=== PATIENT | male | born 1945 | race Caucasian/White ===

== ENCOUNTER → 2019-09-15 11:49 | Outpatient (CLI) | payer MEDICARE, SELFPAY ==
[2013-11-02 06:41] VITALS: BMI 26.4
[2019-09-15 15:37] LABS: Absolute Lymphocyte Count 1.29 X10^3/uL (0.83-4.51); Absolute Neutrophil Count 4.2 X10^3/uL (2.0-7.7); Basophil# 0.02 X10^3/uL; Basophil% 0.3 % (0-1); Eosinophil# 0.04 X10^3/uL; Eosinophils% 0.7 % (0-5); Hematocrit 43.2 % (40-54); Hemoglobin 14.2 g/dL (13.0-16.5); Lymphocyte # 1.29 X10^3/ul (4.0); Lymphocyte % 21.6 % (19-41); Mean Corp Hgb Conc 32.9 g/dL (32-36); Mean Corpuscular Hgb 29.8 pg (27.0-32.0); Mean Corpuscular Volume 90.8 fL (80-94); Mean Platelet Vol. 10.5 fl (6.2-12.0); Monocyte# 0.38 X10^3/uL; Monocyte% 6.4 % (0-10); NRBC Flagged by Analyzer 0 % (0-5); Neutrophil # 4.22 X10^3/uL (2.7-7.7); Neutrophil % 70.7 % (47-70); Platelet Count 250 K/mm3 (150-450); RBC Distribution Width CV 12.5 % (11.6-14.6); RBC Distribution Width SD 41.2 fl (35.1-43.9); Red Blood Count 4.76 M/mm3 (4.6-6.2)
[2019-09-15 15:54] LABS: ALB/GLOB Ratio 1.3 RATIO (0.9-2.4); AST(SGOT) 17 U/L (15-37); Alanine Aminotransfer ALT/SGPT 19 U/L (16-61); Albumin, Serum 3.7 g/dL (3.2-5.0); Alkaline Phosphatase 47 U/L (45-117); Anion Gap 6 (5-15); BUN 21 mg/dL (7-18); BUN/Creat Ratio 18.1 RATIO (10-20); Calcium,Total 8.6 mg/dL (8.5-10.1); Chloride 109 mmol/L (98-107); Creatinine, Serum 1.16 mg/dL (0.70-1.30); EST Glomerular Filtration Rate 66 mL/min (>60); Est Glom Filt Rate - Afr Amer 80 mL/min (>60); Globulin 2.9 g/dL (2.2-4.2); Glucose 92 mg/dL (74-106); Potassium 4.3 mmol/L (3.5-5.1); Protein, Total 6.6 g/dL (6.4-8.2); Sodium Level 144 mmol/L (136-145); Thyroid Stim Hormone (TSH) 1.65 uIU/mL (0.358-3.74)
[2019-09-15 15:58] LABS: Microalbumin,Random Urine 9.3 mg/L (NO RANGE EST.); Microalbumin:Creatinine Ratio 3.9 mg/g CRE (<30 mg/g CRE)
[2020-06-29 10:57] LABS: Aldosterone, Serum 2.4 ng/dL (0.0-30.0); Renin, Plasma 0.572 ng/mL/hr (0.167-5.380)
== END ==
PROVIDERS: Visit Provider Family Medicine
DX: I10 Essential (primary) hypertension (principal); R09.89 Other specified symptoms and signs involving the circulatory and respiratory systems
CPT/HCPCS: 36415; 80053; 82043; 82088; 82570; 84244; 84443; 85025

== ENCOUNTER 2020-06-15 14:17 | Outpatient (RCR) | payer MEDICARE, SELFPAY ==
[2013-11-02 06:41] VITALS: BMI 26.4
[2020-06-15] MEDS: COVID-19 VACC, MRNA(PFIZER)/PF 30 MCG/0.3 ML SYRINGE IM (08:16)
[2020-07-06] MEDS: COVID-19 VACC, MRNA(PFIZER)/PF 30 MCG/0.3 ML SYRINGE IM (08:04)
== END 2020-06-15 23:59 ==
LOC: IMMUN 14:17
PROVIDERS: PCP Family Medicine; Visit Provider Family Medicine
DX: Z23 Encounter for immunization (principal)
CPT/HCPCS: 0001A; 0002A

== ENCOUNTER → 2021-02-12 15:43 | Outpatient (CLI) | payer MEDICARE, SELFPAY ==
[2021-02-12 15:46] LABS: Bacteria 0 SEEN /hpf (None Seen); Lyme Ab Screen Interpretation REF LAB
[2021-02-12 17:38] LABS: Color, Urine Yellow (Yellow); Glucose, Dipstick 100 mg/dl (Normal); Ketone-Dipstick 15 mg/dl (Negative); Leukocyte Esterase-Dipstick 25 /ul (Negative); Nitrite-Dipstick Negative (Negative); Occult Blood-Urine 250 /ul (Negative); Protein-Dipstick 30 mg/dl (Negative); Specific Gravity, Urine 1.025 (1.002-1.030); Urine Bilirubin Dipstick Negative (Negative); Urine Clarity Clear (Clear); Urine Urobilinogen Normal (Normal)
[2021-02-12 17:43] LABS: Absolute Lymphocyte Count 1.69 X10^3/uL (0.83-4.51); Absolute Neutrophil Count 8.4 X10^3/uL (2.0-7.7); Basophil# 0.03 X10^3/uL; Basophil% 0.3 % (0-1); Hematocrit 44.7 % (40-54); Hemoglobin 15.2 g/dL (13.0-16.5); Lymphocyte # 1.69 X10^3/ul (0.83-4.51); Lymphocyte % 15.7 % (19-41); Mean Corpuscular Hgb 30.3 pg (27.0-32.0); Mean Platelet Vol. 10.3 fl (6.2-12.0); Monocyte# 0.65 X10^3/uL; NRBC Flagged by Analyzer 0 % (0-5); Neutrophil # 8.36 X10^3/uL (2.7-7.7); Neutrophil % 77.6 % (47-70); Platelet Count 237 K/mm3 (150-450); RBC Distribution Width CV 11.9 % (11.6-14.6); RBC Distribution Width SD 38.5 fl (35.1-43.9); Red Blood Count 5.02 M/mm3 (4.6-6.2); White Blood Count 10.8 K/mm3 (4.4-11.0)
[2021-02-12 17:46] LABS: Mucous, Urine 1+ /hpf (<or=2+); Red Blood Cells-Urine 10-25 SEEN /hpf (0-5); Squamous Epithelial Cells - UA 0-5 SEEN /hpf (0-5); White Blood Cells 0-5 SEEN /hpf (0-5)
[2021-02-12 17:57] LABS: Vitamin B12 252 pg/mL (211-911)
[2021-02-12 18:01] LABS: Erythrocyte Sedimentation Rate 2 mm/hr (0-20)
[2021-02-12 18:26] LABS: ALB/GLOB Ratio 1.2 RATIO (0.9-2.4); AST(SGOT) 14 U/L (15-37); Alanine Aminotransfer ALT/SGPT 22 U/L (16-61); Alkaline Phosphatase 53 U/L (45-117); Anion Gap 8 (5-15); BUN 17 mg/dL (7-18); BUN/Creat Ratio 16.8 RATIO (10-20); CRP < 2.90 mg/L (0.0-3.0); Chloride 100 mmol/L (98-107); Creatinine, Serum 1.01 mg/dL (0.70-1.30); EST Glomerular Filtration Rate 77 mL/min (>60); Est Glom Filt Rate - Afr Amer 93 mL/min (>60); Globulin 3.4 g/dL (2.2-4.2); Glucose 117 mg/dL (74-106); Protein, Total 7.4 g/dL (6.4-8.2); Sodium Level 134 mmol/L (136-145)
[2021-02-15 16:32] LABS: Lyme Scn Total Ab w/Rflx <0.91 ISR (0.00-0.90)
== END ==
PROVIDERS: PCP Family Medicine; Visit Provider Family Medicine
DX: R53.83 Other fatigue (principal); R50.9 Fever, unspecified; W57.XXXA Bitten or stung by nonvenomous insect and other nonvenomous arthropods, initial encounter
CPT/HCPCS: 80053; 81001; 82607; 82746; 85025; 85652; 86140; 86618

== ENCOUNTER → 2024-12-01 | Outpatient (CLI) | payer MEDICARE, SELFPAY ==
--- NOTE | 2024-12-01 11:32 | VDLE_ITS ---
Reason For Study Reason For Study: LLE Pain RIGHT LEFT FV is compressible, spontaneous, phasic, competent Lt GSV is dilated and PARTIALLY COMPRESSIBLE with and demonstrates normal augmentation. bright intraluminal web-like echoes throughout. This Procedure finding is consistent with CHRONIC SVT. This is a venous duplex using B-mode, color flow and Multiple dilated but compressible varicosities noted spectral Doppler. throughout Lt calf. Exam performed in department. CFV is compressible, phasic, and INCOMPETENT for The exam was diagnostic. greater than 1.0 second. A preliminary report was called and/or faxed to FV is compressible, phasic, and INCOMPETENT for [facility] / Hunter Julian MD. greater than 1.0 second. POP V is compressible, phasic, and INCOMPETENT for greater than 1.0 second. Pop V measures approximately 2.67cm x 3.26cm in transverse and 2.75cm in saggital axis. T/P Trunk is compressible. PTV is compressible. LT PerV is compressible. VL/Venous Duplex US, Unilateral Interpretation Summary Deep veins of the left lower extremity are patent and compressible segmentally. There is no evidence of left lower extremity deep vein thrombosis. The left common femoral vein, femoral vein, and popliteal vein are incompetent. 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 Chronic joby ous changes are noted in the left great saphenous vein, which is partially compressible with bright intra-luminal echog enicity. Multiple large varicosities are noted in the left calf. The right femoral vein is patent and compressible. Ordering Physician: Hunter Julian Referring Physician: Hunter Julian Performed By: Francisco Hale RVT
== END | disposition home or self-care (01) ==
PROVIDERS: PCP Family Medicine; Referring Provider Family Medicine; Visit Provider Family Medicine
DX: M79.662 Pain in left lower leg (principal)
CPT/HCPCS: 93971

== ENCOUNTER → 2024-12-07 | Outpatient (CLI) | payer MEDICARE, OTHER, SELFPAY ==
[2024-12-07 18:01] LABS: Hematocrit 38.6 % (40-54); Hemoglobin 13.5 g/dL (13.0-16.5); Immature Granulocytes Count 0.020 X10^3/uL (0.0-0.0); Mean Corp Hgb Conc 35.0 g/dL (32-36); Mean Corpuscular Volume 90.6 fL (80-94); Mean Platelet Vol. 10.2 fl (6.2-12.0); NRBC Flagged by Analyzer 0 % (0-5); Platelet Count 239 K/mm3 (150-450); RBC Distribution Width CV 12.2 % (11.6-14.6); RBC Distribution Width SD 40.1 fl (35.1-43.9); Red Blood Count 4.26 M/mm3 (4.6-6.2); White Blood Count 6.3 K/mm3 (4.4-11.0)
[2024-12-07 18:28] LABS: AST(SGOT) 21 U/L (<=37); Alanine Aminotransfer ALT/SGPT 17 U/L (<=46); Albumin, Serum 4.1 g/dL (3.4-4.8); Alkaline Phosphatase 67 U/L (40-129); Anion Gap 9 (5-15); BUN 19 mg/dL (4-19); BUN/Creat Ratio 18.7 RATIO (10-20); Calcium,Total 9.0 mg/dL (7.6-11.0); Carbon Dioxide 24.4 mmol/L (21.0-32.0); Chloride 107 mmol/L (98-108); Globulin 2.4 g/dL (2.2-4.2); Glucose 91 mg/dL (70-99); Potassium 4.5 mmol/L (3.3-5.1); Syphilis Antibodies Nonreactive (Nonreactive)
--- OUTSIDE RECORDS SUMMARY | 2024-12-07 22:07 | XMS RPT_ITS | CCD ---
Author Organization [facility] Care Team Providers Care Record Systems Analyst Name Role Phone Hunter Julian Referring Unavailable Hunter Julian Attending Unavailable Hunter Julian Primary Care Unavailable Eliel MIR, Dr. Harrison Primary Care Provider Eliel MIR, Dr. Harrison Attending Provider Eliel MIR, Dr. Harrison Referring Provider [phone] Medications Current Medications Medication Drug Class(es) Dates Sig (Normalized) Sig (Original) acetaminophen 325 mg / oxyCODONE hydrochloride 5 mg oral tablet (1 source) Opioid Agonist Start: 11-02-2013 Oxycodone-Acetam inophen 1 TABLET tablet Active 1 - 2 {tbl} PO EVERY 4 HOURS NEEDED as needed for Pain November 02, 2013 12:00am aspirin 81 mg chewable tablet (1 source) Platelet Aggregation Inhibitor, Nonsteroidal Anti-inflammatory Drug Start: 05-10-2013 take 1 tablet by mouth once daily Aspirin 81 MG tablet,chewable Active 81 mg PO DAILY May 10, 2013 1:00am warfarin sodium 5 mg oral tablet (1 source) Vitamin K Antagonist Start: 11-02-2013 take 1 tablet by mouth once daily Warfarin (Coumadin) 5 MG tablet Active 5 mg PO DAILY November 02, 2013 12:00am Problems Problem Classification Problem Date Documented Da te Episodic/Chronic Other connective tissue disease (1 source) Pain in left lower leg; Translations: [Pain in left lower leg] Onset: 12-01-2024 Episodic Results Test Name Value Interpretation Reference Range Facil ity Venous duplex ultrasound rep ortOrdered By: Salvatore Sal on 12-02-2024 US Vein [facility] [address] [place] [address] Venous Duplex US, Unilateral 12/01/24 1142 MR#: [id number] Acct: [id number] Name: EVE FERRERA Rep #:[id number] : 1945 79 From: Salvatore Sal MD Attending Dr: Dr. Hunter Julian MD atus: REG CLI Ordering Dr: Hunter Julian MD Date: 11/13 Location: CVS Sex: M C Admitted: Reason For Study Reason For Study: LLE Pain RIGHT LEFT FV is compressible, spontaneous, phasic, competent Lt GSV is dilated and PARTIALLY COMPRESSIBLE with and demonstrates normal augmentation. bright intraluminal web-like echoes throughout. This Procedure finding is consistent with CHRONIC SVT. This is a venous duplex using B-mode, color flow and Multiple dilated but compressible varicosities noted spectral Doppler. throughout Lt calf. Exam performed in department. CFV is compressible, phasic, and INCOMPETENT for The exam was diagnostic. greater than 1.0 second. A preliminary report was called and/or faxed to FV is compressible, phasic, and INCOMPETENT for [facility] / Hunter Julian MD. greater than 1.0 second. POP V is compressible, phasic, and INCOMPETENT for greater than 1.0 second. Pop V measures approximately 2.67cm x 3.26cm in transverse and 2.75cm in saggital axis. T/P Trunk is compressible. PTV is compressible. LT PerV is compressible. VL/Venous Duplex US, Unilateral Interpretation Summary Deep veins of the left lower extremity are patent and compressible segmentally. There is no evidence of left lower extremity deep vein thrombosis. The left common femoral vein, femoral vein, and popliteal vein are incompetent. 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 Chronic venous changes are noted in the left great saphenous vein, which is partially compressible with bright intra-luminal echogenicity. Multiple large varicosities are noted in the left calf. The right femoral vein is patent and compressible. Ordering Physician: Hunter Julian Referring Physician: Hunter Julian Performed By: Francisco Hale, RVT 12/02/2416 Date _ Salvatore Sal MD CC: Dr. Hunter Julian MD ~ Date Dictated: 12/01/24 1142 Date Transcribed: 12/02/2416 Hydroblaster: Signed [facility] Other Venous Duplex US, Unilateral on 12-01-2024 Venous Duplex US, Unilateral [facility] [address] [place] [address] Venous Duplex US, Unilateral 12/01/241141 MR#: [id number] Acct: [id number] Name: EVE FERRERA Rep #: [id number] : 1945 79 From: Salvatore Sal MD Attending Dr: Dr. Hunter Julian MD Status: REG CL I Ordering Dr: Hunter Julian MD Date: 12/01/24 Location: [facility]S Sex: M C Admitted: Reason For Study Reason For Study: LLE Pain RIGHT LEFT FV is compressible, spontaneous, phasic, competent Lt GSV is dilated and PARTIALLY COMPRESSIBLE with and demonstrates normal augmentation. bright intraluminal web-like echoes throughout. This Procedure finding is consistent with CHRONIC SVT. This is a venous duplex using B-mode, color flow and Multiple dilated but compressible varicosities noted spectral Doppler. throughout Lt calf. Exam performed in department. CFV is compressible, phasic, and INCOMPETENT for The exam was diagnostic. greater than 1.0 second. A preliminary report was called and/or faxed to FV is compressible, phasic, and INCOMPETENT for [facility] / Hunter Julian MD. greater than 1.0 second. POP V is compressible, phasic, and INCOMPETENT for greater than 1.0 second. Pop V measures approximately 2.67cm x 3.26cm in transverse and 2.75cm in saggital axis. T/P Trunk is compressible. PTV is compressible. LT PerV is compressible. VL/Venous Duplex US, Unilateral Interpretation Summary Deep veins of the left lower extremity are patent and compressible segmentally. There is no evidence of left lower extremity deep vein thrombosis. The left common femoral vein, femoral vein, and popliteal vein are incompetent. 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 Chronic venous changes are noted in the left great saphenous vein, which is partially compressible with bright intra-luminal echogenicity. Multiple large varicosities are noted in the left calf. The right femoral vein is patent and compressible. Ordering Physician: Hunter Julian Referring Physician: Hunter Julian Performed By: Francisco Hale RVT 12/02/24 0017 Date Salvatore Sal MD CC: Dr. Hunter Julian MD Date Dictated: 12/01/24 1142 Date Transcribed: 12/02/2416 Hydroblaster: Signed Normal [facility]COon 05-20-2022 [facility]CO Letter Text Normal [facility] Encounters Encounter Date Encounter Type Care Provider Facility Start: 12-07-[address] Hunter Julian MD -Laboratory [facility] Start: 12-01-2024 End: 12-01-[address] Hunter Julian MD -Cardiovascular Services Work Phone: Start: 12-01-2024 End: 12-01-2024 ambulatory Hunter Julian Facility:[facility] Plan of Treatment Date Care Activity Detail Author Start: 12-07-2024 Serologic test for syphilis [facility] Alanine aminotransfe rase [Enzymatic activity/volume] in Serum or Plasma [facility] Albumin [Mass/volume ] in Serum or Plasma [facility] Albumin/Globulin [Ma ss Ratio] in Serum or Plasma by Electrophoresis [facility] Alkaline phosphatase [Enzymatic activity/volume] in Serum or Plasma [facility] Anion gap in Serum or Plasma [facility] Bilirubin, total measurement [facility] BUN/Creatinine ratio [facility] Calcium [Mass/volume ] in Serum or Plasma [facility] Carbon dioxide, tota l [Moles/volume] in Central venous blood [facility] Creatinine [Mass/vol ume] in Serum or Plasma [facility] Electrophoresis: albumin [facility] Electrophoresis: [id number] [facility] Electrophoresis: [id number] [facility] Electrophoresis: gamma globulin [facility] Erythrocyte mean cor puscular volume determination [facility] Globulin measurement [facility] Glucose [Mass/volume ] in Serum or Plasma [facility] Hematocrit [Volume F raction] of Blood [facility] Hemoglobin [Mass/volume] in Blood [facility] Hemoglobin A1c/Hemog lobin.total in Blood [facility] Leukocytes [#/volume] in Blood [facility] Mean corpuscular hem oglobin concentration determination [facility] Mean corpuscular hem oglobin determination [facility] Measurement of renal function [facility] Neutrophil count [facility] Neutrophil percent d ifferential count [facility] Platelets [#/volume] in Blood [facility] Potassium measurement [facility] Protein electrophore sis panel - Serum or Plasma [facility] Red blood cell count [facility] Red cell distributio n width determination [facility] Serum chloride measurement [facility] Serum protein electrophoresis [facility] Sodium measurement [facility] Thyroid stimulating hormone measurement [facility] Total globulins measurement [facility] Total protein measurement [facility] Urea nitrogen [Mass/ volume] in Serum or Plasma [facility] Immunizations Immunization Date Immunization Notes Care Provider Fa cility 07-06-2020 Covid ([employer]) Dr. Hunter ramos MD Work Phone: [facility] 06-15-2020 Covid ([employer]) Dr. Hunter ramos MD Work Phone: [facility] Payers Date Payer Category Payer Self-pay 2024 Unknown [id number] 2012 Medicare [id number] Self-pay [id number] Unknown [id number] Unknown [id number] Unknown [id number] Unknown [id number] Social History Date Type Detail Facility Start: 10-26-2013 Tobacco smoking stat us [place] Ex-smoker (finding) [facility] Start: 1945 Sex Assigned At Male [facility] Evaluation note Note Date & Type Note Facility Evaluation note No assessment information availa ble [facility] Work Phone: Reason for referral (narrative) Note Date & Type Note Facility Reason for referral (narrative) No reason for referral information available [facility] Work Phone: Summary Purpose Family History No Family History Records FoundNo Family History Records Found Advance Directives Advance Directive Response Recorded Date/ Time Advance Directives No October 26 10:21am Chief Complaint and Reason for Visit Chief Complaint Admit Date STAT LEFT LEG PAIN December 01, 2024 10 :41am Additional Source Comments (unrecognized sect ion and content) No Status Records FoundNo Status Records Found INFORMATION SOURCE (unrecogn ized section and content) DATE CREATED AUTHOR 05/20/2022 [facility] DATE CREATED AUTHOR AUTHOR'S ORGANIZ ATION 12/03/2024 [facility] Care Teams (unrecognized sec tion and content) Team Status: Active Member Role/Relationship Status Dates Dr. Hunter Julian MD Primary Care Provider Active Team Status: Inactive Member Role/Relationship Status Dates Dr. Hunter Julian MD Primary Care Provider Active Start: December 01, 2024 End: December 01, 2024 Dr. Hunter Julian MD Attending Provider Active St art: December 01, 2024 End: December 01, 2024 Dr. Hunter Julian MD Referring Provider Active St art: December 01, 2024 End: December 01, 2024 Team Status: Active Member Role/Relationship Status Dates Dr. Hunter Julian MD Primary Care Provider Active Start: December 07, 2024 Dr. Hunter Julian MD Attending Provider Active art: December 07, 2024 Dr. Hunter Julian MD Referring Provider Active art: December 07, 2024 Goals (unrecognized section and content) Goals may be documented in a n alternate section FOR RECORDS PERTAINING TO PATIENTS WHO ARE OR HAVE BEEN ENROLLED IN A CHEMICAL DEPENDENCY/SUBSTANCEABUSE PROGRAM, SOME INFORMATION MAY BE OMITTED. This clinical summary was aggregated from multiple sources. Caution should be exercised in using it in the provision of clinical care. This summary normalizes information from multiple sources, and as a consequence, information in this document may materially change the coding, format and clinical context of patient data. In addition, data may be omitted in some cases. CLINICAL DECISIONS SHOULD BE BASED ON THE PRIMARY CLINICAL RECORDS. [facility] [employer] [facility]. provides no warranty or guarantee of the accuracy or completeness of information in this document.
[2024-12-09 16:09] LABS: PROEL- A/G Ratio 1.5 (0.7-1.7); PROEL- Albumin 3.6 g/dL (2.9-4.4); PROEL- Alpha-1 Globulin 0.2 g/dL (0.0-0.4); PROEL- Alpha-2 Globulin 0.6 g/dL (0.4-1.0); PROEL- Beta Globulin 0.9 g/dL (0.7-1.3); PROEL- Gamma Globulin 0.7 g/dL (0.4-1.8); PROEL- Globulin, Total 2.4 g/dL (2.2-3.9); PROEL- TOTAL PROTEIN 6.0 g/dL (6.0-8.5); PROEL-M-Spike 0.3 g/dL (Not Observed)
== END | disposition home or self-care (01) ==
LOC: MFPLAB 14:59
PROVIDERS: PCP Family Medicine; Referring Provider Family Medicine; Visit Provider Family Medicine
DX: R20.2 Paresthesia of skin (principal)
CPT/HCPCS: 36415; 80053; 83036; 84165; 84443; 85025; 86780

== ENCOUNTER → 2024-12-23 | Outpatient (CLI) | payer MEDICARE, OTHER, SELFPAY ==
--- NOTE | 2024-12-23 07:28 | US_ITS ---
PROCEDURE: EXT NON VASC LIMITED/SOFT TISS 12/23/2024 REASON FOR EXAM: MORALES CYST TECHNIQUE: Procedure Code: [id number] Modality: US Procedure: EXT NON VASC LIMITED/SOFT TISS COMPARISON: None. US/Ext Non Vasc Limited/Soft Tiss IMPRESSION: No popliteal or Morales's cyst is seen at the left popliteal fossa. Extensive vascular varicosities are seen at the superior left popliteal fossa. Among these is particular focal dilation of a blood vessel (with internal flow seen on color doppler), measured at 4.8 x 3.3 x 3.2 cm. No free fluid is seen. No soft tissue mass is otherwise identified. Reading Location: [place] [address]
--- OUTSIDE RECORDS SUMMARY | 2024-12-23 07:34 | XMS RPT_ITS | CCD ---
Author Organization [facility] Care Team Providers Care Poultry Pathologist Name Role Phone Eliel MIR, Dr. Harrison Primary Care Provider Eliel MIR, Dr. Harrison Attending Provider Eliel MIR, Dr. Harrison Referring Provider [phone] Hunter Julian Primary Care Unavailable Hunter Julian Attending Unavailable Hunter Julian Referring Unavailable Hunter Julian Primary Care Unavailable Hunter Julian Attending Unavailable Hunter Julian Referring Unavailable Hunter Julian Attending Unavailable Hunter Julian Referring Unavailable Hunter Juilan Primary Care Unavailable Medications Current Medications Medication Drug Class(es) Dates Sig (Normalized) Sig (Original) acetaminophen 325 mg / oxyCODONE hydrochloride 5 mg oral tablet (2 sources) Opioid Agonist Start: 11-02-2013 Oxycodone-Acetam inophen 1 TABLET tablet Active 1 - 2 {tbl} PO EVERY 4 HOURS NEEDED as needed for Pain November 02, 2013 12:00am aspirin 81 mg chewable tablet (2 sources) Platelet Aggregation Inhibitor, Nonsteroidal Anti-inflammatory Drug Start: 05-10-2013 take 1 tablet by mouth once daily Aspirin 81 MG tablet,chewable Active 81 mg PO DAILY May 10, 2013 1:00am warfarin sodium 5 mg oral tablet (2 sources) Vitamin K Antagonist Start: 11-02-2013 take 1 tablet by mouth once daily Warfarin (Coumadin) 5 MG tablet Active 5 mg PO DAILY November 02, 2013 12:00am Problems Problem Classification Problem Date Documented Da te Episodic/Chronic Other connective tissue disease (1 source) Synovial cyst of popliteal space [Morales], left knee; Translations: [Synovial cyst of popliteal space [Morales], left knee] Onset: 12-15-2024 Episodic Other connective tissue disease (1 source) Pain in left lower leg; Translations: [Pain in left lower leg] Onset: 12-07-2024 Episodic Other nervous system disorders (1 source) Paresthesia of skin; Translations: [Paresthesia of skin] Onset: 12-14-2024 Episodic Results Test Name Value Interpretation Reference Range Facility Onur Dean 12-09 Albumin [Mass/Vol] 3.6 g/dL Normal 2.9-4.4 [facility] Comment on above: Order Comment: Order Date: 11/30/24 Order Info: 0060-1 - PROEL Performed By: #### L 501.9985, L3100.3450, L501.9520, L500.4050, L100.0100 #### [facility] [address] [place], [place], [id number] (518) Albumin/Globulin [Mass ratio] 1.5 {ratio} Normal 0.7-1.7 [facility] Comment on above: Order Comment: Order Date: 11/30/24 Order Info: 0060-1 - PROEL Performed By: #### L [id number], L3100.3450, L501.9520, L500.4050, L100.0100 #### [facility] [address] [place], [place], [id number] ([phone] ALPHA-1 GLOBUL 0.2 g/dL Normal 0.0-0.4 [facility] Comment on above: Order Comment: Order Date: 11/30/24 Order Info: 0060-1 - PROEL Performed By: #### L [id number], L3100.3450, L501.9520, L500.4050, L100.0100 #### [facility] [address] [place], [address] ALPHA-2 GLOBUL 0.6 g/dL Normal 0.4-1.0 [facility] Comment on above: Order Comment: Order Date: 11/30/24 Order Info: 0060-1 - PROEL Performed By: #### L [id number], L3100.3450, L501.9520, L500.4050, L100.0100 #### [facility] [address] [place], [address] BETA GLOBULIN 0.9 g/dL Normal 0.7-1.3 [facility] Comment on above: Order Comment: Order Date: 11/30/24 Order Info: 0060-1 - PROEL Performed By: #### L 501.9985, L3100.3450, L501.9520, L500.4050, L100.0100 #### [facility] [address] [place], [address] GAMMA GLOBULIN 0.7 g/dL Normal 0.4-1.8 [facility] Comment on above: Order Comment: Order Date: 11/30/24 Order Info: 0060-1 - PROEL Performed By: #### L 501.9985, L3100.3450, L501.9520, L500.4050, L100.0100 #### [facility] [address] [place], [address] Globulin (S) [Mass/Vol] 2.4 g/dL Normal 2.2-3.9 [facility] Comment on above: Order Comment: Order Date: 11/30/24 Order Info: 0060-1 - PROEL Performed By: #### L 501.9985, L3100.3450, L501.9520, L500.4050, L100.0100 #### [facility] [address] [place], [address] INTERPRETATION Comment Normal . [facility] Comment on above: Order Comment: Order Date: 11/30/24 Order Info: 0060-1 - PROEL Result Comment: Prot ein electrophoresis scan will follow via computer, mail, or emergency department director delivery. Performed By: #### L 501.9985, L3100.3450, L501.9520, L500.4050, L100.0100 #### [facility] [address] [place], [address] M-SPIKE 0.3 g/dL Abnormal Not Observed [facility] Comment on above: Order Comment: Order Date: 11/30/24 Order Info: 0060- - PROEL Performed By: #### L 501.9985, L3100.3450, L501.9520, L500.4050, L100.0100 #### [facility] [address] [place], [address] NOTE: Comment Normal . [facility] Comment on above: Order Comment: Order Date: 11/30/24 Order Info: 0060-1 - PROEL Result Comment: The SPE pattern demonstrates a single peak (M-spike) in the gamma region which may represent monoclonal protein. This peak may also be caused by circulating immune complexes, cryoglobulins, C-reactive protein, fibrinogen or hemolysis. If clinically indicated, the presence of a monoclonal gammopathy may be confirmed by immuno-fixation, as well as an evaluation of the urine for the presence of Bence-Schneider protein. Performed at: [address] [id number] Proj Mgr: Jemal Saavedra PhD, Phone: [phone] Performed By: #### L 501.9985, L3100.3450, L501.9520, L500.4050, L100.0100 #### [facility] [address] [place], [address] Protein [Mass/Vol] 6.0 g/dL Normal 6.0-8.5 [facility] Comment on above: Order Comment: Order Date: 11/30/24 Order Info: 006 - PROEL Performed By: #### L 501.9985, L3100.3450, L501.9520, L500.4050, L100.0100 #### [facility] [address] [place], [address] Absolute lymphocyte countOrd ered By: Hunter Julian on 12-07-2024 Lymphocytes Auto (Unsp spec) [#/Vol] 1.60 10*3/uL 0.83-4.51 [facility] Absolute neutrophil countOrd ered By: Hunter Julian on 12-07-2024 Neutrophils (Bld) [#/Vol] 4.1 10*3/uL 2.0-7.7 [facility] Albumin Elph [Mass/Vol]Order ed By: Hunter Julian on 12-07-2024 Albumin [Mass/Vol] 3.6 g/dL 2.9-4.4 [facility] Anion gap in Serum or Plasma Ordered By: Hunter Julian on 12-07-2024 Anion gap [Moles/Vol] 9 mmol/L 5-15 [facility] Automated lymphocyte count a s percentage of total leukocytesOrdered By: Hunter Julian on 12-07-2024 Lymphocytes/100 WBC Auto (Unsp spec) 25.4 % - [facility] BUN/creatinine ratioOrdered By: Hunter Julian on 12-07-2024 Urea nitrogen/Creatinine [Mass ratio] 18.7 mg/mg 10- [facility] Basophil percentageOrdered B y: Hunter Julian on 12-07-2024 Basophils/100 WBC (Bld) 0.5 % 0-1 [facility] Bilirubin, totalOrdered By: Hunter Julian on 12-07-2024 Bilirubin [Mass/Vol] 0.62 mg/dL 0.00-1.30 [facility] CBC W/Diff, Automatedon 11-13 Absolute Lymph 1.60 X10 3/uL Normal 0.83-4.51 [facility] Comment on above: Order Comment: Order Date: 11/30/24 Order Info: 0184-1 - CBCD Performed By: #### L 501.9985, L3100.3450, L501.9520, L500.4050, L100.0100 #### [facility] [address] [place], [place], [id number] Absolute Neut 4.1 X10 3/uL Normal 2.0-7.7 [facility] Comment on above: Order Comment: Order Date: 11/30/24 Order Info: 0184-1 - CBCD Performed By: #### L 501.9985, L3100.3450, L501.9520, L500.4050, L100.0100 #### [facility] [address] [place], [address] Basophils/100 WBC (Bld) 0.5 % Normal 0-1 [facility] Comment on above: Order Comment: Order Date: 11/30/24 Order Info: 0184-1 - CBCD Performed By: #### L 501.9985, L3100.3450, L501.9520, L500.4050, L100.0100 #### [facility] [address] [place], [address] Eosinophils/100 WBC (Bld) 2.2 % Normal 0-5 [facility] Comment on above: Order Comment: Order Date: 11/30/24 Order Info: 0184-1 - CBCD Performed By: #### L 501.9985, L3100.3450, L501.9520, L500.4050, L100.0100 #### [facility] [address] [place], [address] Erythrocyte distribution width (RBC) [Ratio] 12.2 % Normal 11.6-14.6 [facility] Comment on above: Order Comment: Order Date: 11/30/24 Order Info: 0184-1 - CBCD Performed By: #### L 501.9985, L3100.3450, L501.9520, L500.4050, L100.0100 #### [facility] [address] [place], [address] Hematocrit (Bld) [Volume fraction] 38.6 % Low 40-54 [facility] Comment on above: Order Comment: Order Date: 11/30/24 Order Info: 0184-1 - CBCD Performed By: #### L 501.9985, L3100.3450, L501.9520, L500.4050, L100.0100 #### [facility] [address] [place], [address] Hemoglobin (Bld) [Mass/Vol] 13.5 g/dL Normal 13.0-16.5 [facility] Comment on above: Order Comment: Order Date: 11/30/24 Order Info: 0184-1 - CBCD Performed By: #### L 501.9985, L3100.3450, L501.9520, L500.4050, L100.0100 #### [facility] [address] [place], [address] IG% 0.300 Normal 0.0-0.9 [facility] Comment on above: Order Comment: Order Date: 11/30/24 Order Info: 0184-1 - CBCD Result Comment: IG% - Immature Granulocytes (promyelocytes, myelocytes and metamyelocytes) > 1% indicates that a LEFT SHIFT is Present. Performed By: #### L 501.9985, L3100.3450, L501.9520, L500.4050, L100.0100 #### [facility] [address] [place], [address] Lymphocytes/100 WBC (Bld) 25.4 % Normal 19-41 [facility] Comment on above: Order Comment: Order Date: 11/30/24 Order Info: 0184-1 - CBCD Performed By: #### L 501.9985, L3100.3450, L501.9520, L500.4050, L100.0100 #### [facility] [address] [place], [address] MCH (RBC) [Entitic mass] 31.7 pg Normal 27.0-32.0 [facility] Comment on above: Order Comment: Order Date: 11/30/24 Order Info: 0184-1 - CBCD Performed By: #### L 501.9985, L3100.3450, L501.9520, L500.4050, L100.0100 #### [facility] [address] [place], [address] MCHC (RBC) [Mass/Vol] 35.0 g/dL Normal 32-36 [facility] Comment on above: Order Comment: Order Date: 11/30/24 Order Info: 0184-1 - CBCD Performed By: #### L 501.9985, L3100.3450, L501.9520, L500.4050, L100.0100 #### [facility] [address] [place], [address] MCV (RBC) [Entitic vol] 90.6 fL Normal 80-94 [facility] Comment on above: Order Comment: Order Date: 11/30/24 Order Info: 0184-1 - CBCD Performed By: #### L 501.9985, L3100.3450, L501.9520, L500.4050, L100.0100 #### [facility] [address] [place], [address] Monocytes/100 WBC (Bld) 7.1 % Normal 0-10 [facility] Comment on above: Order Comment: Order Date: 11/30/24 Order Info: 0184-1 - CBCD Performed By: #### L 501.9985, L3100.3450, L501.9520, L500.4050, L100.0100 #### [facility] [address] [facility] [place], [address] Neutrophils/100 WBC (Bld) 64.5 % Normal 47-70 [facility] Comment on above: Order Comment: Order Date: 11/30/24 Order Info: 0184-1 - CBCD Performed By: #### L 501.9985, L3100.3450, L501.9520, L500.4050, L100.0100 #### [facility] [address] [place], [address] Nucleated RBC (Bld) [#/Vol] 0 10*3/uL Normal 0-5 [facility] Comment on above: Order Comment: Order Date: 11/30/24 Order Info: 0184-1 - CBCD Performed By: #### L 501.9985, L3100.3450, L501.9520, L500.4050, L100.0100 #### [facility] [address] [place], [address] Platelet mean volume (Bld) [Entitic vol] 10.2 fL Normal 6.2-12.0 [facility] Comment on above: Order Comment: Order Date: 11/30/24 Order Info: 0184-1 - CBCD Performed By: #### L 501.9985, L3100.3450, L501.9520, L500.4050, L100.0100 #### [facility] [address] [place], [address] Platelets (Bld) [#/Vol] 239 10*3/uL Normal 150-450 [facility] Comment on above: Order Comment: Order Date: 11/30/24 Order Info: 0184- - CBCD Performed By: #### L 501.9985, L3100.3450, L501.9520, L500.4050, L100.0100 #### [facility] [address] [place], [address] RBC (Bld) [#/Vol] 4.26 10*6/uL Low 4.6-6.2 [facility] Comment on above: Order Comment: Order Date: 11/30/24 Order Info: 0184- - CBCD Performed By: #### L 501.9985, L3100.3450, L501.9520, L500.4050, L100.0100 #### [facility] [address] [place], [address] RDW SD 40.1 fl Normal 35.1-43.9 [facility] Comment on above: Order Comment: Order Date: 11/30/24 Order Info: 0184-1 - CBCD Performed By: #### L 501.9985, L3100.3450, L501.9520, L500.4050, L100.0100 #### [facility] [address] [place], [address] WBC (Bld) [#/Vol] 6.3 10*3/uL Normal 4.4-11.0 [facility] Comment on above: Order Comment: Order Date: 11/30/24 Order Info: 0184-1 - CBCD Performed By: #### L 501.9985, L3100.3450, L501.9520, L500.4050, L100.0100 #### [facility] [address] [place], [address] Carbon dioxide, total [Moles /volume] in Central venous bloodOrdered By: Hunter Julian on 12-07-2024 CO2 [Moles/Vol] 24.4 mmol/L 21.0-32.0 [facility] Chloride assayOrdered By: Hosea Julian on 12-07-2024 Chloride [Moles/Vol] 107 mmol/L 98-108 [facility] Comprehensive Metabolic Prof ilon 12-07-2024 Albumin [Mass/Vol] 4.1 g/dL Normal 3.4-4.8 [facility] Comment on above: Order Comment: Order Date: 11/30/24 Order Info: 0786-1 - CMP Order Info: 3016-3 - TSH Performed By: #### L 501.9985, L3100.3450, L501.9520, L500.4050, L100.0100 #### [facility] [address] [place], [address] Albumin/Globulin [Mass ratio] 1.7 {ratio} Normal 0.9-2.4 [facility] Comment on above: Order Comment: Order Date: 11/30/24 Order Info: 0786-1 - CMP Order Info: 3016-3 - TSH Performed By: #### L 501.9985, L3100.3450, L501.9520, L500.4050, L100.0100 #### [facility] [address] [place], [address] ALK PHOS 67 U/L Normal 40-129 [facility] Comment on above: Order Comment: Order Date: 11/30/24 Order Info: 0786-1 - CMP Order Info: 3013 - TSH Performed By: #### L 501.9985, L3100.3450, L501.9520, L500.4050, L100.0100 #### [facility] [address] [place], [address] ALT [Catalytic activity/Vol] 17 U/L Normal <=46 [facility] Comment on above: Order Comment: Order Date: 11/30/24 Order Info: 0786- - CMP Order Info: 3 - TSH Performed By: #### L 501.9985, L3100.3450, L501.9520, L500.4050, L100.0100 #### [facility] [address] [place], [address] AST [Catalytic activity/Vol] 21 U/L Normal <=37 [facility] Comment on above: Order Comment: Order Date: 11/30/24 Order Info: 0786-1 - CMP Order Info: 30109-14 - TSH Performed By: #### L 501.9985, L3100.3450, L501.9520, L500.4050, L100.0100 #### [facility] [address] [place], [address] Bilirubin [Mass/Vol] 0.62 mg/dL Normal 0.00-1.30 [facility] Comment on above: Order Comment: Order Date: 11/30/24 Order Info: 0786-1 - CMP Order Info: 3016 - TSH Performed By: #### L 501.9985, L3100.3450, L501.9520, L500.4050, L100.0100 #### [facility] [address] [place], [address] BUN/CRE 18.7 RATIO Normal 10-20 [facility] Comment on above: Order Comment: Order Date: 11/30/24 Order Info: 0786-1 - CMP Order Info: 3016-3 - TSH Performed By: #### L 501.9985, L3100.3450, L501.9520, L500.4050, L100.0100 #### [facility] [address] [place], [address] Calcium [Mass/Vol] 9.0 mg/dL Normal 7.6-11.0 [facility] Comment on above: Order Comment: Order Date: 11/30/24 Order Info: 0786- - CMP Order Info: 3015-06 - TSH Performed By: #### L 501.9985, L3100.3450, L501.9520, L500.4050, L100.0100 #### [facility] [address] [place], [address] Chloride [Moles/Vol] 107 mmol/L Normal 98-108 [facility] Comment on above: Order Comment: Order Date: 11/30/24 Order Info: 0786- - CMP Order Info: 3015-06 - TSH Performed By: #### L 501.9985, L3100.3450, L501.9520, L500.4050, L100.0100 #### [facility] [address] [place], [address] CO2 [Moles/Vol] 24.4 mmol/L Normal 21.0-32.0 [facility] Comment on above: Order Comment: Order Date: 11/30/24 Order Info: 0786- - CMP Order Info: 3015-06 - TSH Performed By: #### L 501.9985, L3100.3450, L501.9520, L500.4050, L100.0100 #### [facility] [address] [place], [address] Creatinine [Mass/Vol] 1.04 mg/dL Normal 0.70-1.20 [facility] Comment on above: Order Comment: Order Date: 11/30/24 Order Info: 0786-1 - CMP Order Info: 3016-3 - TSH Performed By: #### L 501.9985, L3100.3450, L501.9520, L500.4050, L100.0100 #### [facility] [address] [place], [address] GAP 9 Normal 5-15 [facility] Comment on above: Order Comment: Order Date: 11/30/24 Order Info: 0786-1 - [facility] Order Info: 30163 - TSH Performed By: #### L 501.9985, L3100.3450, L501.9520, L500.4050, L100.0100 #### [facility] [address] [place], [address] GFR/1.73 sq M.predicted among non-blacks MDRD (S/P/Bld) [Vol rate/Area] 74 mL/min/{1.73_m2} Normal >60 [facility] Comment on above: Order Comment: Order Date: 11/30/24 Order Info: 0786-1 - [facility] Order Info: 3016-3 - TSH Result Comment: mL/m in/1.73m2 CKD-EPI Creatinine Equation (2020) Performed By: #### L 501.9985, L3100.3450, L501.9520, L500.4050, L100.0100 #### [facility] [address] [place], [address] Globulin (S) [Mass/Vol] 2.4 g/dL Normal 2.2-4.2 [facility] Comment on above: Order Comment: Order Date: 11/30/24 Order Info: 0786-1 - [facility] Order Info: 3016-3 - TSH Performed By: #### L 501.9985, L3100.3450, L501.9520, L500.4050, L100.0100 #### [facility] [address] [place], [address] Glucose [Mass/Vol] 91 mg/dL Normal 70-99 [facility] Comment on above: Order Comment: Order Date: 11/30/24 Order Info: 0786-1 - CMP Order Info: 3 - TSH Performed By: #### L 501.9985, L3100.3450, L501.9520, L500.4050, L100.0100 #### [facility] [address] [place], [address] Potassium [Moles/Vol] 4.5 mmol/L Normal 3.3-5.1 [facility] Comment on above: Order Comment: Order Date: 11/30/24 Order Info: 0786-1 - CMP Order Info: 3 - TSH Performed By: #### L 501.9985, L3100.3450, L501.9520, L500.4050, L100.0100 #### [facility] [address] [place], [address] Sodium [Moles/Vol] 140 mmol/L Normal 133-145 [facility] Comment on above: Order Comment: Order Date: 11/30/24 Order Info: 0786-1 - CMP Order Info: 3 - TSH Performed By: #### L 501.9985, L3100.3450, L501.9520, L500.4050, L100.0100 #### [facility] [address] [place], [address] T PROT 6.4 g/dL Normal 5.9-8.4 [facility] Comment on above: Order Comment: Order Date: 11/30/24 Order Info: 0786-1 - CMP Order Info: 301-3 - TSH Performed By: #### L 501.9985, L3100.3450, L501.9520, L500.4050, L100.0100 #### [facility] [address] [place], [address] Urea nitrogen [Mass/Vol] 19 mg/dL Normal 4-19 [facility] Comment on above: Order Comment: Order Date: 11/30/24 Order Info: 0786-1 - CMP Order Info: 3016-3 - TSH Performed By: #### L 501.9985, L3100.3450, L501.9520, L500.4050, L100.0100 #### [facility] [address] [place], [address] Eosinophil percentageOrdered By: Hunter Julian on 12-07-2024 Eosinophils/100 WBC (Bld) 2.2 % 0-5 [facility] Erythrocyte distribution wid th ratioOrdered By: Hunter Julian on 12-07-2024 Erythrocyte distribution width (RBC) [Ratio] 12.2 % 11.6-14.6 [facility] Erythrocyte distribution wid th standard deviationOrdered By: Hunter Julian on 12-07-2024 Erythrocyte distribution width (RBC) [Ratio] 40.1 fl 35.1-43.9 [facility] Glomerular filtration rate ( GFR) estimation/1.73 sq m using serum, plasma, or whole bOrdered By: Hunter Julian on 12-07-2024 GFR/1.73 sq M.predicted among non-blacks MDRD (S/P/Bld) [Vol rate/Area] 74 mL/min/{1.73_m2} >60 [facility] Comment on above: mL/min/1.73m2 CKD-EP I Creatinine Equation (2020) Hematocrit Auto (Bld) [Volum e fraction]Ordered By: Hunter Julian on 12-07-2024 Hematocrit (Bld) [Volume fraction] 38.6 % Low 40-54 [facility] Hemoglobin A1con 12-07-2024 HbA1c (Bld) [Mass fraction] 5.3 % Normal <=5.6 [facility] Comment on above: Order Comment: Order Date: 11/30/24 Order Info: 4548-4 - A1C Result Comment: Norm al < 5.7 % Prediabetic 5.7 - 6.4 % Diabetic >or= 6.5 % Please note range changes. Performed By: #### L 501.9985, L3100.3450, L501.9520, L500.4050, L100.0100 #### [facility] [address] [place], [place], [id number] Hemoglobin A1c percentageOrd ered By: Hunter Julian on 12-07-2024 HbA1c (Bld) [Mass fraction] 5.3 % <5.7 [facility] Comment on above: Normal < 5.7 % Predi abetic 5.7 - 6.4 % Diabetic >or= 6.5 % Please note range changes. Hemoglobin measurementOrdere d By: Hunter Julian on 12-07-2024 Hemoglobin (Bld) [Mass/Vol] 13.5 g/dL 13.0-16.5 [facility] Immature granulocytes/100 WB C Auto (Bld)Ordered By: Hunter Julian on 12-07-2024 Immature granulocytes/100 WBC (Bld) 0.300 % 0.0-0.9 [facility] Comment on above: IG% - Immature Granu locytes (promyelocytes, myelocytes and metamyelocytes) > 1% indicates that a LEFT SHIFT is Present. Laboratory - Chemistry and C hemistry - challengeOrdered By: Hunter Julian on 12-07-2024 AST [Catalytic activity/Vol] 21 U/L <38 [facility] MCV (mean corpuscular volume ) determinationOrdered By: Hunter Julian on 12-07-2024 MCV (RBC) [Entitic vol] 90.6 fL 80-94 [facility] Mean corpuscular hemoglobin (MCH) determinationOrdered By: Hunter Julian on 12-07-2024 MCH (RBC) [Entitic mass] 31.7 pg 27.0-32.0 [facility] Mean corpuscular hemoglobin concentration (MCHC) determinationOrdered By: Hunter Julian on 12-07-2024 MCHC (RBC) [Mass/Vol] 35.0 g/dL 32-36 [facility] Mean platelet volume determi nationOrdered By: Hunter Julian on 12-07-2024 Platelet mean volume (Bld) [Entitic vol] 10.2 fL 6.2-12.0 [facility] Monocyte percentageOrdered B y: Hunter Julian on 12-07-2024 Monocytes/100 WBC (Bld) 7.1 % 0-10 [facility] Neutrophil percentageOrdered By: Hunter Julian on 12-07-2024 Neutrophils/100 WBC (Bld) 64.5 % 47-70 [facility] No Panel InformationOrdered By: Hunter Julian on 12-07-2024 Addendum Document Comment . [facility] Comment on above: The SPE pattern demo nstrates a single peak (M-spike) in thegamma region which may represent monoclonal protein. Thispeak may also be caused by circulating immune complexes,cryoglobulins, C-reactive protein, fibrinogen or hemolysis. If clinically indicated, the presence of a monoclonalgammopathy may be confirmed by immuno-fixation, as well asan evaluation of the urine for the presence of Bence-Jonesprotein.Performed at: [employer] [id number] Director: Jemal Saavedra PhD, Phone: [phone] Nucleated red blood cell per centageOrdered By: Hunter Julian on 12-07-2024 Nucleated RBC/100 WBC (Bld) [Ratio] 0 % 0-5 [facility] Platelet countOrdered By: Hosea Julian on 12-07-2024 Platelets (Bld) [#/Vol] 239 10*3/uL 150-450 [facility] Potassium measurement (mass/ volume)Ordered By: Hunter Julian on 12-07-2024 Potassium (Unsp spec) [Mass/Vol] 4.5 mmol/L 3.3-5.1 [facility] Protein Fractions Elph [Inte rp]Ordered By: Hunter Julian on 12-07-2024 Protein Fractions [Interp] Comment . [facility] Comment on above: Protein electrophore sis scan will follow via computer,mail, or emergency department director delivery. RBC Auto (Bld) [#/Vol]Ordere d By: Hunter Julian on 12-07-2024 RBC (Bld) [#/Vol] 4.26 10*6/uL Low 4.6-6.2 [facility] Serum albumin to globulin ra mary by protein electrophoresisOrdered By: Hunter Julian on 12-07-2024 Albumin/Globulin Elph [Mass ratio] 1.5 0.7-1.7 [facility] Serum creatinine measurement (mass/volume)Ordered By: Hunter Julian on 12-07-2024 Creatinine [Mass/Vol] 1.04 mg/dL 0.70-1.20 [facility] Serum globulin measurementOr dered By: Hunter Julian on 12-07-2024 Globulin (S) [Mass/Vol] 2.4 g/dL 2.2-3.9 [facility] Serum glucose measurement (m ass/volume)Ordered By: Hunter Julian on 12-07-2024 Glucose [Mass/Vol] 91 mg/dL 70-99 [facility] Serum or plasma alanine wolf otransferase (ALT) measurementOrdered By: Hunter Julian on 12-07-2024 ALT [Catalytic activity/Vol] 17 U/L <47 [facility] Serum or plasma albumin sondra urement (mass/volume)Ordered By: Hunter Julian on 12-07-2024 Albumin [Mass/Vol] 4.1 g/dL 3.4-4.8 [facility] Serum or plasma albumin/glob ulin mass ratioOrdered By: Hunter Julian on 12-07-2024 Albumin/Globulin [Mass ratio] 1.7 {ratio} 0.9-2.4 [facility] Serum or plasma alkaline emily sphatase measurementOrdered By: Hunter Julian on 12-07-2024 ALP [Catalytic activity/Vol] 67 U/L 40-129 [facility] Serum or plasma beta globuli n measurement by electrophoresis (mass/volume)Ordered By: Hunter Julian on 12-07-2024 Beta globulin Elph [Mass/Vol] 0.9 g/dL 0.7-1.3 [facility] Serum or plasma calcium sondra urement (mass/volume)Ordered By: Hunter Julian on 12-07-2024 Calcium [Mass/Vol] 9.0 mg/dL 7.6-11.0 [facility] Serum or plasma protein sondra urement (mass/volume)Ordered By: Hunter Julian on 12-07-2024 Protein [Mass/Vol] 6.0 g/dL 6.0-8.5 [facility] Serum or plasma protein mono clonal measurement by electrophoresis (mass/volume)Ordered By: Hunter Julian on 12-07-2024 Protein.monoclonal Elph [Mass/Vol] 0.3 g/dL High Not Observed [facility] Serum or plasma urea nitroge n measurement (mass/volume)Ordered By: Hunter Julian on 12-07-2024 Urea nitrogen [Mass/Vol] 19 mg/dL 4- [facility] Sodium levelOrdered By: Hunter Julian on 12-07-2024 Sodium [Moles/Vol] 140 mmol/L 133-145 [facility] Syphilis Antibodieson 2024 Syphilis Abs Non-Reactive Normal Nonreactive [facility] Comment on above: Order Comment: Order Date: 11/30/24 Order Info: [id number] - CMP Order Info: [id number] - TSH Performed By: #### L [id number] #### [facility] [address], [place], [address] TSH DL <= 0.005 mIU/L QnOrde red By: Hunter Julian on 12-07-2024 TSH Qn 2.230 uIU/mL 0.300-4.200 [facility] Thyroid Stim Hormone (TSH)on 12-07-2024 TSH 2.230 uIU/mL Normal 0.300-4.200 [facility] Comment on above: Order Comment: Order Date: 11/30/24 Order Info: [id number] - [facility] Order Info: [id number] - TSH Performed By: #### L [id number], L3100.3450, L501.9520, L500.4050, L100.0100 #### [facility] [address] [place], [place], [address] Total proteinOrdered By: Zara Julian on 12-07-2024 Protein [Mass/Vol] 6.4 g/dL 5.9-8.4 [facility] White blood cell (WBC) count Ordered By: Hunter Julian on 12-07-2024 WBC (Bld) [#/Vol] 6.3 10*3/uL 4.4-11.0 [facility] Venous duplex ultrasound rep ortOrdered By: Salvatore Sal on 12-02-[address] [facility] [address] [place] [address] Venous Duplex US, Unilateral 12/01/24 1142 MR#: [id number] Acct: [id number] Name: EVE FERRERA Rep #:[id number] : 1945 79 From: Salvatore Sal MD [...] FV is compressible, phasic, and INCOMPETENT for [place] Henny / Hunter Julian MD. greater than 1.0 [...] Hunter Julian Performed By: Francisco Hale RVT 12/02/247 Date _ Salvatore Sal MD CC: Dr. Hunter Julian MD ~ Date Dictated: 12/01/24 1142 Date Transcribed: 12/02/2416 Felt Carbonizer: Signed [facility] Other Phone: Venous Duplex US, Unilateral on 12-01-2024 Venous Duplex US, Unilateral [facility] [address] [place] [address] Venous Duplex US, Unilateral 12/01/241141 MR#: [id number] Acct: [id number] Name: EVE FERRERA Rep #: [id number] : 1945 79 From: Salvatore Sal MD [...] FV is compressible, phasic, and INCOMPETENT for [place] Henny / Hunter Julian MD. greater than 1.0 [...] Date Dictated: 12/01/24 1142 Date Transcribed: 12/02/2416 Felt Carbonizer: Signed Normal [facility] CNCOon 05-20-2022 CNCO Letter Text Normal [facility] Encounters Encounter Date Encounter Type Care Provider Facility Start: 12-23-2024 ambulatory Hunter Julian Facility:[facility] Start: 12-07-2024 End: 12-07-[address] Hunter Julian MD Work Phone: -[facility] Start: 12-07-2024 End: 12-07-[address] Hunter Julian MD -Laboratory [facility] Start: 12-07-2024 End: 12-07-2024 ambulatory Hunter Julian Facility:[facility] Start: 12-01-2024 End: 12-01-[address] Hunter Julian MD Work Phone: -Cardiovascular Services Start: 12-01-2024 End: 12-01-[address] Hunter Julian MD -Cardiovascular Services Work Phone: Start: 12-01-2024 End: 12-01-2024 ambulatory Hunter Julian Facility:[facility] Procedures Date Procedure Procedure Detail Performing Clinician Start: 12-07-2024 Electrophoresis: [id number] Dr. Hunter Julian MD Work Phone: Start: 12-07-2024 Electrophoresis: [id number] Dr. Hunter Julian MD Work Phone: Start: 12-07-2024 Electrophoresis: rhys ma globulin Dr. Hunter Julian MD Work Phone: Start: 12-07-2024 Serologic test for syphilis Dr. Hunter Julian MD Work Phone: Plan of Treatment Date Care Activity Detail Author Start: 12-07-2024 Serologic test for syphilis [facility] Alanine aminotransfe rase [Enzymatic activity/volume] in Serum or Plasma [facility] Albumin [Mass/volume ] in Serum or Plasma [facility] Albumin/Globulin [Ma ss Ratio] in Serum or Plasma by Electrophoresis [facility] Alkaline phosphatase [Enzymatic activity/volume] in Serum or Plasma [facility] Anion gap in Serum or Plasma [facility] Bilirubin, total measurement [facility] BUN/Creatinine ratio [facility] Calcium [Mass/volume ] in Serum or Plasma [facility] Carbon dioxide, tota l [Moles/volume] in Central venous blood [facility] Creatinine [Mass/vol ume] in Serum or Plasma [facility] Electrophoresis: albumin [facility] Electrophoresis: [id number] [facility] Electrophoresis: [id number] [facility] Electrophoresis: gamma globulin [facility] Erythrocyte mean cor puscular volume determination [facility] Globulin measurement [facility] Glucose [Mass/volume ] in Serum or Plasma [facility] Hematocrit [Volume F raction] of Blood [facility] Hemoglobin [Mass/volume] in Blood [facility] Hemoglobin A1c/Hemog lobin.total in Blood [facility] Leukocytes [#/volume] in Blood [facility] Mean corpuscular hem oglobin concentration determination [facility] Mean corpuscular hem oglobin determination [facility] Measurement of renal function [facility] Neutrophil count [facility] Neutrophil percent d ifferential count [facility] Platelets [#/volume] in Blood [facility] Potassium measurement [facility] Protein electrophore sis panel - Serum or Plasma [facility] Red blood cell count [facility] Red cell distributio n width determination [facility] Serum chloride measurement [facility] Serum protein electrophoresis [facility] Sodium measurement [facility] Thyroid stimulating hormone measurement [facility] Total globulins measurement [facility] Total protein measurement [facility] Urea nitrogen [Mass/ volume] in Serum or Plasma [facility] Immunizations Immunization Date Immunization Notes Care Provider Fa cility 07-06-2020 Covid (Pfizer) Dr. Hunter ramos MD Work Phone: [facility] 06-15-2020 Covid (Pfizer) Dr. Hunter ramos MD Work Phone: [facility] Payers Date Payer Category Payer Unknown [id number] 2024 Self-pay 2024 Unknown [id number] 2012 Medicare [id number] Self-pay [id number] Unknown [id number] Unknown [id number] Unknown [id number] . [id number] Unknown [id number] Unknown [id number] Social History Date Type Detail Facility [facility]: [facility] Start: 1945 Sex Assigned At Male [facility] Evaluation note Note Date & Type Note Facility Evaluation note No assessment information availa ble [facility] Work Phone: Reason for referral (narrative) Note Date & Type Note Facility Reason for referral (narrative) No reason for referral information available [facility] Work Phone: Summary Purpose Family History No Family History Records FoundNo Family History Records Found Advance Directives No Advanced Directives Records Found Advance Directive Response Recorded Date/ Time Advance Directives No October 26 10:21am Chief Complaint and Reason for Visit Chief Complaint Admit Date STAT LEFT LEG PAIN December 01, 2024 10 :41am Additional Source Comments (unrecognized sect ion and content) No Status Records FoundNo Status Records Found INFORMATION SOURCE (unrecogn ized section and content) DATE CREATED AUTHOR 05/20/2022 [facility] DATE CREATED AUTHOR AUTHOR'S ORGANIZ ATION 12/15/2024 [facility] Care Teams (unrecognized sec tion and content) [...] MD Attending Provider Active St art: December 07, 2024 Dr. Hunter Julian MD Referring Provider Active St art: December 07, 2024 Team Status: Inactive Member Role/Relationship Status Dates Dr. Hunter Julian MD Primary Care Provider Active Start: December 07, 2024 End: December 07, 2024 Dr. Hunter Julian MD Attending Provider Active St art: December 07, 2024 End: December 07, 2024 Dr. Hunter Julian MD Referring Provider Active St art: December 07, 2024 End: December 07, 2024 Goals (unrecognized section and content) Goals may be documented in a n alternate sectionGoals may be documented in an alternate section FOR RECORDS PERTAINING TO PATIENTS [...] BE BASED ON THE PRIMARY CLINICAL RECORDS. [facility]. provides no warranty or guarantee of the accuracy or completeness of information in this document.
== END | disposition home or self-care (01) ==
PROVIDERS: PCP Family Medicine; Referring Provider Family Medicine; Visit Provider Family Medicine
DX: M71.22 Synovial cyst of popliteal space [Baker], left knee (principal)
CPT/HCPCS: 76882

== ENCOUNTER → 2025-03-14 | Outpatient (CLI) | payer MEDICARE, OTHER, SELFPAY ==
[2025-03-15 14:08] LABS: Lyme Scn Total Ab w/Rflx Negative (Negative)
== END | disposition home or self-care (01) ==
LOC: MFPLAB 09:52
PROVIDERS: PCP Family Medicine; Visit Provider Family Medicine
DX: T14.8XXA Other injury of unspecified body region, initial encounter (principal); W57.XXXA Bitten or stung by nonvenomous insect and other nonvenomous arthropods, initial encounter
CPT/HCPCS: 36415; 86618